=== PATIENT | male | born 1970 | race Caucasian/White ===

== ENCOUNTER → 2017-06-16 | Outpatient (REF) ==
[~2017-06-16] MED LIST: ASCO500C8 PO; EZET1TAB64 PO; GLUC750T10 PO; KET10 PO; LOR5/325 PO; MULT-1335 PO; VALS1TAB61 PO
== END ==
LOC: AUD 10:30
PROVIDERS: ATTEND Internal Medicine
DX: Z01.10 Encounter for examination of ears and hearing without abnormal findings (principal)
CPT/HCPCS: 92552